=== PATIENT | male | born 1980 | race Caucasian/White ===

== ENCOUNTER 2022-10-04 12:04 | Emergency (ER) | payer MEDICAID ==
[~2022-10-04] VITALS: Ht 177.8 cm; Wt 104.8 kg
[2022-10-04] MEDS ORDERED: KETOROLAC TROMETHAMINE 15 MG/ML VIAL ONE (12:21)
[2022-10-04] MEDS ORDERED: KETOROLAC TROMETHAMINE INJ 30 MG/ML VIAL IM ONE (12:30)
--- NOTE | 2022-10-04 12:30 | NUR ---
Patient came in to the er c/o R ankle and toe pain x 2 days 02/20 ps. On room air, breathing evenly and unlabored. Kept comfortable, will continue to monitor accordingly.
--- NOTE | 2022-10-04 13:33 | NUR ---
ultrasound at bedside
[2022-10-04] MEDS ORDERED: INDO50CA92 PO (14:30)
[2022-10-04] MEDS ORDERED: HYDR-4209 PO (14:30)
[2022-10-04 14:52] VITALS: BP 145/89
--- NOTE | 2022-10-04 14:52 | NUR ---
Patient discharged to home in stable condition. Written and verbal after care instructions given. Patient verbalizes understanding of instruction.
== END 2022-10-04 14:52 | disposition home or self-care (01) ==
LOC: ER 12:06
DX: M10.9 Gout, unspecified (principal)
CPT/HCPCS: 99285; 93971; 96372; 73630; J1885

== ENCOUNTER 2023-01-14 13:15 | Emergency (ER) | payer MEDICAID ==
[~2023-01-14] VITALS: Ht 180.3 cm; Wt 99.8 kg
[~2023-01-14 13:15] MED LIST: HYDR-4209 PO; INDO50CA92 PO
[2023-01-14] MEDS ORDERED: TDAP [DIPH/PERTUSSIS/TET] 0.5 ML VIAL IM ONE ×2 (14:00→14:07)
[2023-01-14] MEDS ORDERED: AMOX-430 PO (14:38)
[2023-01-14 14:45] VITALS: BP 126/81; TEMP 97.9; O2SAT 98
== END 2023-01-14 14:46 | disposition home or self-care (01) ==
LOC: ER 13:19
DX: S81.852A Open bite, left lower leg, initial encounter (principal); I10 Essential (primary) hypertension; W54.0XXA Bitten by dog, initial encounter; Y93.89 Activity, other specified; Y92.89 Other specified places as the place of occurrence of the external cause; Y99.8 Other external cause status
CPT/HCPCS: 90715